=== PATIENT | male | born 1980 | race American Indian/Alaskan Native ===

== ENCOUNTER 2018-10-04 18:16 | Emergency (ER) | payer SELFPAY ==
[2018-10-04 18:16] VITALS: BMI 46.0
[2018-10-04 18:40] VITALS: TEMP 98.8
--- NOTE | 2018-10-04 18:58 | ED PDOC ---
Arrival/HPI - General Historian: Patient - History of Present Illness Narrative History of Present Illness (Text): 10/04/18 18:55 38 yo M w/ PMH of diabetes and HTN, presents complaining of pain, swelling to the R great toe for the past few days. Reports no fever, chills, numbness, d/c, trauma or injury. States that he has an appointment with his foot doctor in 3 days. <Esther Valero PA-C - Last Filed: 10/04/18 22:34> <Rashaad Powers - Last Filed: 10/05/18 06:59> - General Chief Complaint: Lower Extremity Problem/Injury Time Seen by Provider: 10/04/18 18:41 Past Medical History - Infectious Disease Hx of Infectious Diseases: None - Cardiac Hx Cardiac Disorders: Yes Hx Hypertension: Yes - Pulmonary Hx Respiratory Disorders: No - Neurological Hx Neurological Disorder: No - HEENT Hx HEENT Disorder: No - Renal Hx Renal Disorder: No - Endocrine/Metabolic Hx Endocrine Disorders: Yes Hx Diabetes Mellitus Type 2: Yes - Hematological/Oncological Hx Blood Disorders: No - Integumentary Hx Dermatological Disorder: No - Musculoskeletal/Rheumatological Hx Musculoskeletal Disorders: No - Gastrointestinal Hx Gastrointestinal Disorders: No - Genitourinary/Gynecological Hx Genitourinary Disorders: No - Psychiatric Hx Psychophysiologic Disorder: No Hx Substance Use: No - Surgical History Hx Orthopedic Surgery: Yes (toe surgery) - Anesthesia Hx Malignant Hyperthermia: No <Esther Valero PA-C - Last Filed: 10/04/18 22:34> Family/Social History Family/Social History: No Known Family HX Smoking Status: Never Smoked Hx Alcohol Use: Yes Hx Substance Use: No <Esther Valero PA-C - Last Filed: 10/04/18 22:34> Allergies/Home Meds <Esther Valero PA-C - Last Filed: 10/04/18 22:34> <Rashaad Powers - Last Filed: 10/05/18 06:59> Allergies/Adverse Reactions: Allergies No Known Allergies Allergy (Verified 10/04/18 18:35) Home Medications: Home Meds Medication Instructions Recorded Confirmed Lisinopril 40 mg PO DAILY 07/08/15 10/04/18 RX: MetFORMIN [glucoPHAGE] 1,000 mg PO BID 07/08/15 10/04/18 Exenatide Microspheres [Bydureon 2 mg SC Q7D 10/04/18 10/04/18 Bcise] Review of Systems - Review of Systems Constitutional: absent: Fatigue, Fevers Musculoskeletal: Arthralgias, Joint Swelling. absent: Back Pain, Neck Pain Skin: absent: Rash, Skin Lesions <Esther Valero PA-C - Last Filed: 10/04/18 22:34> Physical Exam Vital Signs Temp Pulse Resp BP Pulse Ox 10/04/18 18:37 98.8 F 87 17 191/124 H 97 Temperature: Afebrile Blood Pressure: Hypertensive Pulse: Regular Respiratory Rate: Normal Appearance: Positive for: Well-Appearing, Non-Toxic, Comfortable Pain Distress: None Mental Status: Positive for: Alert and Oriented X 3 - Systems Exam Lower Extremity: Present: NORMAL PULSES, Normal ROM, Tenderness (R foot : +tenderness, swelling, and pus noted under the skin of the lateral nail margin. ), Neurovascularly Intact, Capillary Refill < 2 s. No: Temperature Abnormalties Neurological: Present: GCS=15, CN II-XII Intact, Speech Normal Skin: Present: Warm, Dry, Normal Color. No: Rashes Psychiatric: Present: Alert, Oriented x 3, Normal Insight, Normal Concentration <Esther Valero PA-C - Last Filed: 10/04/18 22:34> Vital Signs Temp Pulse Resp BP Pulse Ox 10/04/18 19:16 88 18 157/106 H 95 10/04/18 18:37 98.8 F 87 17 191/124 H 97 <Rashaad Powers - Last Filed: 10/05/18 06:59> Medical Decision Making ED Course and Treatment: 10/04/18 19:03 Plan : - I&D of paronychia - Keflex PO - Bactrim PO - Tdap IM Repeat BP 157/106 P 88. 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 Apply warm compresses and take antibiotics as prescribed. <Esther Valero PA-C - Last Filed: 10/04/18 22:34> - Medication Orders Current Medication Orders: Discontinued Medications Acetaminophen (Tylenol 325mg Tab) 975 mg PO STAT STA Stop: 10/04/18 19:08 Last Admin: 10/04/18 19:17 Dose: 975 mg Bacitracin (Bacitracin) 1 ea TOP STAT STA Stop: 10/04/18 19:09 Last Admin: 10/04/18 19:18 Dose: 1 ea Cephalexin Monohydrate (Keflex) 500 mg PO STAT STA; Protocol Stop: 10/04/18 19:08 Last Admin: 10/04/18 19:17 Dose: 500 mg Tetanus/Reduced Diphtheria/Acell Pertussis (Boostrix Vaccine Inj) 0.5 ml IM .ONCE ONE Stop: 10/04/18 19:08 Last Admin: 10/04/18 19:18 Dose: 0.5 ml Immunization Registry Document 10/04/18 19:18 GMD (Rec: 10/04/18 19:18 GMD [facility] [id number]) [facility]-Date provided 10/04/18 Trimethoprim/Sulfamethoxazole (Bactrim Ds Tab) 2 tab PO STAT STA; Protocol Stop: 10/04/18 19:08 Last Admin: 10/04/18 19:17 Dose: 2 tab <Rashaad Powers - Last Filed: 10/05/18 06:59> Procedures - Incision and Drainage Site: R great toe Blade Size: 11 I & D Procedure: betadine prep, sterile drapes applied Progress: Yellow purulent material was expressed from the wound. Wound irrigated with NS, bacitracin and clean dressing applied. Patient tolerated the procedure well. <Esther Valero PA-C - Last Filed: 10/04/18 22:34> - PA / CD MIXER HELPER / Resident Statement MANUEL has reviewed & agrees with the documentation as recorded. <Esther Valero PA-C - Last Filed: 10/04/18 22:34> - PA / CD MIXER HELPER / Resident Statement MANUEL has reviewed & agrees with the documentation as recorded. <Rashaad Powers - Last Filed: 10/05/18 06:59> Disposition/Present on Arrival - Present on Arrival Any Indicators Present on Arrival: Yes History of DVT/PE: No History of Uncontrolled Diabetes: Yes Urinary Catheter: No History of Decub. Ulcer: No History Surgical Site Infection Following: None - Disposition Have Diagnosis and Disposition been Completed?: Yes Disposition Time: 19:00 Patient Plan: Discharge <Esther Valero PA-C - Last Filed: 10/04/18 22:34> <Rashaad Powers - Last Filed: 10/05/18 06:59> - Disposition Diagnosis: Paronychia of toe of right foot Disposition: HOME/ ROUTINE Condition: STABLE Discharge Instructions (ExitCare): Paronychia (DC) Additional Instructions: Thank you for letting us take care of you today. You were treated for paronychia of the toe. The emergency medical care you received today was directed at your acute symptoms. If you were prescribed any medication, please fill it and take as directed. It may take several days for your symptoms to resolve. Return to the Emergency Department if your symptoms worsen, do not improve, or if you have any other problems. Please contact your foot doctor in 2-3 days for re-evaluation and follow up. Bring any paperwork you were given at discharge with you along with any medications you are taking to your follow up visit. Our treatment cannot replace ongoing medical care by a primary care provider (PCP) outside of the emergency department. Thank you for allowing the [facility] team to be part of your care today. Prescriptions: Cephalexin [Keflex] 500 mg PO Q6 #28 capsule Sulfamethoxazole/Trimethoprim [Bactrim DS 800 mg-160 mg] 2 tab PO BID #28 tab Forms: [employer] ([place]), WORK NOTE
[2018-10-04] MEDS ORDERED: TDAP Vaccine 0.5 mL Syr IM ONE (19:07)
[2018-10-04] MEDS ORDERED: Tmp-Smz 800 mg-160 mg DS Tab PO STA (19:07)
[2018-10-04] MEDS ORDERED: Bacitracin 500 Units/gm Oint Foilpak UD TOP STA (19:08)
[2018-10-04 19:17] VITALS: BP 157/106; PULSE 88; RESP 18; O2SAT 95
== END 2018-10-04 19:35 | disposition home or self-care (01) ==
LOC: ED 18:16
DX: L03.031 Cellulitis of right toe (principal); E11.9 Type 2 diabetes mellitus without complications; I10 Essential (primary) hypertension; Z23 Encounter for immunization